=== PATIENT | female | born 1980 | race Caucasian/White ===

== ENCOUNTER 2020-06-12 14:55 | Outpatient (REF) | payer MEDICARE, SELFPAY ==
[2020-06-12 15:11] LABS: MANUAL DIFF FLAG NO
[2020-06-12 15:16] LABS: Basophils Percent Auto 0.4 % (0-2); Eosinophils Absolute Auto 0.1 X10*3/uL (0.0-0.4); Eosinophils Percent Auto 1.2 % (0-4); Hematocrit 37.2 % (37-47); Hemoglobin 12.2 g/dl (12.0-16.0); Imm Gran Abs Auto 0.01 X10*3/uL (0.00-0.03); Imm Gran Pct Auto 0.1 % (0.0-0.4); Lymphocytes Absolute Auto 1.9 X10*3/uL (1.2-4.9); Lymphocytes Percent Auto 26.3 % (20-40); Mean Corpuscular HGB Conc 32.8 g/dl (31.0-35.0); Mean Corpuscular Hemoglobin 30.4 pg (27.0-33.0); Mean Corpuscular Volume 92.8 fL (80-98); Mean Platelet Volume 9.7 fL (9.4-12.3); Monocytes Absolute Auto 0.6 X10*3/uL (0.1-1.2); Monocytes Percent Auto 8.7 % (2-11); Neutrophils Absolute Auto 4.6 X10*3/uL (2.0-8.3); Neutrophils Percent Auto 63.3 % (45-73); Platelet Count 306 X10*3/uL (160-400); Red Blood Count 4.01 X10*6/uL (4.20-5.50); Red Cell Distribution Width 12.6 % (11.0-16.0); White Blood Count 7.3 X10*3/uL (4.8-10.8)
[2020-06-12 15:38] LABS: Alanine Aminotransferase 12 U/L (0-31); Albumin Level 4.2 g/dL (3.5-5.0); Alkaline Phosphatase 68 U/L (39-117); Anion Gap 11 (12-20); Aspartate Amino Transferase 12 U/L (5-31); Bilirubin Total 0.2 mg/dL (0.0-1.0); Blood Urea Nitrogen 19 mg/dL (9-16); Calcium 8.9 mg/dL (8.4-10.2); Carbon Dioxide 27 mmol/L (22-29); Chloride 103 mmol/L (96-108); Cholesterol 175 mg/dL; Estimated Glomerular Filt Rate > 60; Glucose Fasting 98 mg/dL (60-99); HDL Cholesterol 57 mg/dL; LDL Cholesterol Calculated 105 mg/dl; Potassium 4.2 mmol/L (3.3-5.1); Sodium 137 mmol/L (135-145); Total Protein 7.1 g/dL (6.5-8.0); Triglycerides 65 mg/dL
[2020-06-12 15:59] LABS: TSH reflex Free T4 0.79 uIU/mL (0.32-4.0)
[2020-06-12 17:27] LABS: Folate 4.6 ng/mL (> or = 4.0); Vitamin B12 < 146 pg/mL (200-900)
== END 2020-06-12 14:56 | disposition home or self-care (01) ==
LOC: HO.LAB 14:55
PROVIDERS: PCP Family Medicine; Visit Provider Family Medicine
DX: Z00.00 Encounter for general adult medical examination without abnormal findings (principal); E53.8 Deficiency of other specified B group vitamins; Z98.84 Bariatric surgery status
CPT/HCPCS: 36415; 80053; 80061; 82607; 82746; 84443; 85025

== ENCOUNTER 2020-08-08 14:54 | Outpatient (REF) | payer OTHER, SELFPAY ==
--- NOTE | ~2020-08-08 | CT_ITS ---
EXAMINATION: CT CHEST WITH CONTRAST CLINICAL INFORMATION: Other nonspecific finding lung field COMPARISON: Previous chest CT October 2006 radius chest x-rays most recent October 2018 TECHNIQUE: Multidetector volumetric CT imaging of the chest was obtained after the administration of 65 mL of Omnipaque 350 intravenous contrast without immediate adverse reactions. Axial MIP volume rendering provided. Sagittal and coronal reformatted images were obtained. This CT examination was performed using dose optimization techniques as appropriate, variously including the following: *Automated exposure control *Adjustment of mA and/or kV according to patient size (this includes techniques or standardized protocols for targeted exams where dose is matched to indication/reason for exam; i.e. extremities or head) *Use of iterative reconstruction technique DLP: 159 mGy-cm FINDINGS: LUNGS: There is a 3 mm peripheral or subpleural right upper lobe nodule axial image 42 series 5 that is stable. There is a 3 mm peripheral or subpleural left lower lobe nodule adjacent to the fissure axial image 101 series 5. This may be seen on axial image 52 series 102 on prior exam. There is a 3 mm right middle lobe nodule axial 105 series 5. This may be seen on axial image 54 series 102 on prior exam. The lungs are otherwise clear. MEDIASTINUM: There is a 1 x 0.6 cm left thyroid nodule. This does not meet criteria for imaging/ultrasound follow-up by size criteria. There are small mediastinal and bilateral hilar lymph nodes. There are no enlarged hilar or mediastinal lymph nodes. The heart does not appear enlarged. There is a trace pericardial effusion. There is question of wall thickening of the distal thoracic esophagus. PLEURA: There is no pleural effusion. No pleural mass or thickening. AXILLA: There are small bilateral axillary lymph nodes. No enlarged lymph nodes are seen. No chest wall mass is seen. UPPER ABDOMEN: There is a new gastric lap band. OSSEOUS STRUCTURES: Unremarkable. CT/CT chest w con IMPRESSION: Small pulmonary nodules probably unchanged from previous exam October 2006. Small pericardial effusion similar to 2017 exam. New gastric lap band. Question wall thickening of the distal thoracic esophagus.
[2020-08-08] MEDS: iohexoL 350 MG/ML 100 ML INFUS..BTL IV (15:15)
== END 2020-08-08 14:55 | disposition home or self-care (01) ==
LOC: HO.CT 14:54
PROVIDERS: PCP Family Medicine; Visit Provider Family Medicine
DX: R91.8 Other nonspecific abnormal finding of lung field (principal)
CPT/HCPCS: 71260; Q9967

== ENCOUNTER → 2020-10-06 09:13 | Outpatient (BNVA) | payer OTHER, SELFPAY | PROVIDERS: PCP Family Medicine; Referring Provider Family Medicine; Visit Provider Nurse Practitioner Family | DX: R10.13 Epigastric pain (principal); R10.9 Unspecified abdominal pain; K21.9 Gastro-esophageal reflux disease without esophagitis | CPT/HCPCS: 99202 ==

== ENCOUNTER 2020-10-10 13:45 | Day surgery (SDC) | payer OTHER, SELFPAY ==
[2020-10-10 14:15] LABS: UPreg QC Valid YES; Urine Pregnancy NEGATIVE (NEGATIVE)
[2020-10-10 14:17] VITALS: BP 115/79; PULSE 83; RESP 20; TEMP 36.9; O2SAT 98; BMI 39.9
--- NOTE | 2020-10-10 14:20 | HO.ANESPROP2 ---
FORMERLY [facility], [facility] Active Problems Active Problems: All Active Problems (Updated 08/21/20 @ 12:10 by Soham Gotti MD) Esophageal thickening (Acute) Epigastric pain (Acute) Nicotine dependence (Acute) GERD (gastroesophageal reflux disease) (Acute) Screening for colon cancer (Acute) Breast cancer screening by mammogram (Acute) Screening for cervical cancer (Acute) Lung nodules (Acute) Low vitamin B12 level (Acute) Laboratory examination ordered as part of a routine general medical examination (Acute) Nicotine dependence (Acute) History of laparoscopic adjustable gastric banding (Acute) Hiatal hernia (Acute) Abdominal pain (Acute) Anxiety (Acute) Depression (Acute) Past Medical History Medical History Anxiety Depression Lung nodules Sleep apnea Vitamin B12 deficiency Family History Family History Mother Esophageal cancer Father Diabetes Heart attack Surgical History Surgical History History of bilateral breast reduction surgery History of placement of ear tubes Social History Social History Alcohol intake: never Patient Tobacco Use Status: Current everyday Tobacco user Cigarettes Per Day: 10 Are you DNR?: No Advance Directives: No Advance Directives Information Provided: Yes Meds Allergies Allergy/AdvReac Type Severity Reaction Status Date / Time sulfamethoxazole Allergy Severe hives, Verified 10/10/20 14:17 [From Bactrim] fever trimethoprim [From Bactrim] Allergy Severe hives, Verified 10/10/20 14:17 fever diisopromine AdvReac Intermediate hives Verified 10/10/20 14:17 Home Medications Medication Instructions Recorded Confirmed Last Taken Type clonazepam 0.5 mg tablet 0.5 mg PO TID PRN 06/12/20 Unknown History dextroamphetamine-amphetamine 20 1 tab PO DAILY 06/12/20 Unknown History mg tablet dextroamphetamine-amphetamine 30 1 tab PO DAILY 06/12/20 Unknown History mg tablet escitalopram oxalate 10 mg tablet 0 mg PO 06/12/20 Unknown History escitalopram oxalate 20 mg tablet 0 mg PO 06/12/20 Unknown History oxcarbazepine 150 mg tablet 0 mg PO 06/12/20 Unknown History Exam Exam Date and Time: October 10, 2020 1420 Pertinent Lab Results Pertinent Lab Results: Laboratory Tests 10/10/20 14:05 Urine Test NEGATIVE Airway Mallampati Class: III TM Dist: >3cm Neck ROM: Full
[2020-10-10] MEDS: Lactated Ringers 1,000 ML 100 ML IVCONT (14:31)
--- NOTE | 2020-10-10 15:04 | MHC.SHP ---
Pre-Procedural Eval Section A Date of Service: 10/10/20 The patient is an INPATIENT: No Changes since office visit: Yes Patient answered all questions; No Cold of Flu in the past 2 weeks, No New Medical Problems and No Changes in Medication The History & Physical has been completed within 30 days and I have reviewed it.: Yes Section B Chief Complaint: screening,reflux Allergies: Allergies Allergy/AdvReac Type Severity Reaction Status Date / Time sulfamethoxazole Allergy Severe hives, Verified 10/10/20 14:17 [From Bactrim] fever trimethoprim [From Bactrim] Allergy Severe hives, Verified 10/10/20 14:17 fever diisopromine AdvReac Intermediate hives Verified 10/10/20 14:17 Plan I have reviewed the history and physical and performed a pertinent physical examination on my patient. No changes have occurred unless specified.
[2020-10-10 16:10] VITALS: BP 95/54; PULSE 83; RESP 14; TEMP 36.3; O2SAT 99
[2020-10-10 16:25] VITALS: BP 109/77; PULSE 95; RESP 16; TEMP 36.3; O2SAT 99
--- NOTE | 2020-10-10 19:38 | W.PM.OPN ---
Operative Note Operative Note Date of Service: 10/10/20 Narrative: Pre-op diagnosis: Colon cancer screening, Severe heartburn and regurgitation, status post Lap Band surgery Post-op diagnosis: other (Erosive esophagitis, gastritis, diverticulosis, hemorrhoids) Procedure: FLEXIBLE TRANSORAL UPPER GASTROINTESTINAL ENDOSCOPY WITH BIOPSIES AND COLONOSCOPY TILL CECUM UPPER ENDOSCOPY Consent: Indications for the procedure and potential complications of bleeding, perforation, reaction to medications and missed diagnosis were discussed with the patient and informed consent was obtained. Instrument: Olympus GIF H 190 mid size upper endoscope Monitoring: Vital signs and clinical assessment, continuous EKG monitoring, Pulse oximetry, Carbon Dioxide monitoring and blood pressure monitoring were done throughout the procedure. Procedure: The patient was placed in the left lateral decubitis position and pre-procedure medications were administered and a bite block was placed. The endoscope was inserted into the mouth and advanced under direct vision to the third part of duodenum. A careful inspection was made as the upper endoscope was withdrawn including a retroflexed examination of the proximal stomach; Findings and interventions are described below. Findings: Larynx: Mild edema of arytenoid cartilages Esophagus: GE junction at 35 cms. Severe grade 3-4 erosive esophagitis from 30 to 35 cms. Two 1 cms benign appearing nodules at GEJ - biopsied. Stomach: Narrowing due to lap band at 40 cms - mid-size upper endoscope passed through the lap band with minimal resistance. Mild gastric erythema. Biopsies were obtained. Grade 2 flap valve on retroflexed examination of the cardia. Duodenum: Normal bulb and descending duodenum Intervention: Biopsies as noted above COLONOSCOPY PROCEDURE NOTE Consent: Indications for the procedure and potential complications of bleeding, perforation, reaction to medications and missed diagnosis were discussed with the patient and informed consent was obtained. Instrument: Olympus PCF H 190 L variable stiffness pediatric colonoscope Monitoring: Vital signs and clinical assessment, intermittent blood pressure monitoring, continuous EKG monitoring, Pulse oximetry and Carbon Dioxide monitoring were done throughout the procedure. Colon withdrawl time was 28 minutes. Procedure: The patient was placed in the left lateral decubitis position and pre-procedure medications were administered. After a digital rectal examination of the ano-rectum, the video colonoscope was inserted into the rectum and advanced through the colon to the cecum. The colonoscope was slowly withdrawn in a retrograde panoramic fashion and the colon mucosa was carefully examined including a retroflexed view of the rectum. Findings and interventions are described below. Procedure Difficulty: : Without difficulty Findings: Terminal Ileum: Not evaluated Cecum: Normal Ascending Colon: Normal Transverse Colon: Normal Descending Colon: Moderate diverticulosis Sigmoid Colon: Moderate diverticulosis Rectum: Normal Ano-rectum: Moderate internal hemorrhoids Colon preparation: Good after copious irrigation Impression and Post Procedure Diagnosis: Endoscopy Findings: LARYNX: Changes suggestive of LPRD ESOPHAGUS: Severe erosive esophagitis, two benign appearing nodules at GEJ STOMACH: Narrowing due to lap band at 40 cms likely causing severe GERD, Gastritis. Colonoscopy Findings: No polyps were detected. Moderate diverticulosis seen in the left colon Moderate hemorrhoids on retroflexed exam. Plan: Await pathology results Patient has an appointment on 11/10/20 in the GI Clinic with Randee Edmond FNP-BC. Consider Genetic testing due to FH of gastric and colon cancer in multiple family members. Patient will be scheduled for an UGI to rule out partial obstruction due to lap band causing severe reflux. She will need to FU with Bariatric surgery for adjustment/removal of Lap Band. Repeat EGD and Colonoscopy in 5 years due to positive family hx of colon cancer (Maternal GM in her 60's, two maternal uncles in their 40's) and stomach cancer (pt's Mom in her 60's). Above findings were reviewed with the patient and GERD and diverticulosis handouts were given in the discharge area. Patient was advised to resume taking Omeprazole. Surgeon: Kaylie Pineda MD Anesthesia: MAC (Dolly Garcia CRNA) Was an Welding Machine Operator Electroslag used for this Procedure?: Yes Welding Machine Operator Electroslag: Megan Ash Estimated blood loss (mL): 0 Pathology: other (A. GASTRIC ANTRUM BX'S R/O H. PYLORI B. ESOPHAGEAL NODULE) Condition: stable Disposition: PACU
== END 2020-10-10 16:43 | disposition home or self-care (01) ==
PROVIDERS: Internal Medicine; PCP Family Medicine; Visit Provider Internal Medicine Gastroenterology
PROC: (CPT 43239; principal; 2020-10-10 16:00)
DX: Z12.11 Encounter for screening for malignant neoplasm of colon (principal); K57.30 Diverticulosis of large intestine without perforation or abscess without bleeding; K64.8 Other hemorrhoids; K29.50 Unspecified chronic gastritis without bleeding; K21.9 Gastro-esophageal reflux disease without esophagitis; K20.80 Other esophagitis without bleeding; Z79.899 Other long term (current) drug therapy; Z98.84 Bariatric surgery status; F17.210 Nicotine dependence, cigarettes, uncomplicated; Z88.2 Allergy status to sulfonamides; Z88.8 Allergy status to other drugs, medicaments and biological substances
CPT/HCPCS: 43239; G0105; 81025; 88305; 88342

== ENCOUNTER → 2020-11-10 08:46 | Outpatient (BNVA) | payer OTHER, SELFPAY | PROVIDERS: Visit Provider Nurse Practitioner Family | DX: K21.9 Gastro-esophageal reflux disease without esophagitis (principal); K22.10 Ulcer of esophagus without bleeding; K22.8 Other specified diseases of esophagus; R10.9 Unspecified abdominal pain; Z98.84 Bariatric surgery status | CPT/HCPCS: Q3014 ==

== ENCOUNTER → 2020-11-18 11:11 | Outpatient (BNVA) | payer OTHER, SELFPAY | PROVIDERS: Visit Provider Nurse Practitioner Family | DX: Z13.79 Encounter for other screening for genetic and chromosomal anomalies (principal) | CPT/HCPCS: 99211 ==

== ENCOUNTER → 2020-12-23 08:53 | Outpatient (BNVA) | payer OTHER, SELFPAY | PROVIDERS: Visit Provider Nurse Practitioner Family | DX: K21.00 Gastro-esophageal reflux disease with esophagitis, without bleeding (principal); R10.13 Epigastric pain; R10.9 Unspecified abdominal pain | CPT/HCPCS: 99212 ==

== ENCOUNTER → 2020-12-29 10:39 | Outpatient (BNVA) | payer OTHER, SELFPAY | PROVIDERS: Visit Provider Surgery ==

== ENCOUNTER 2021-05-01 14:04 | Outpatient (REF) | payer OTHER, SELFPAY ==
[2021-05-01 14:26] LABS: MANUAL DIFF FLAG NO
[2021-05-01 15:22] LABS: Basophils Percent Auto 0.5 % (0-2); Eosinophils Absolute Auto 0.1 X10*3/uL (0.0-0.4); Eosinophils Percent Auto 1.3 % (0-4); Hematocrit 35.6 % (37.0-47.0); Hemoglobin 11.5 g/dl (12.0-16.0); Imm Gran Abs Auto 0.01 X10*3/uL (0.00-0.03); Imm Gran Pct Auto 0.2 % (0.0-0.4); Lymphocytes Absolute Auto 1.4 X10*3/uL (1.2-4.9); Mean Corpuscular HGB Conc 32.3 g/dl (31.0-35.0); Mean Corpuscular Hemoglobin 27.8 pg (27.0-33.0); Mean Corpuscular Volume 86.2 fL (80.0-98.0); Mean Platelet Volume 10.5 fL (9.4-12.3); Monocytes Absolute Auto 0.5 X10*3/uL (0.1-1.2); Monocytes Percent Auto 8.7 % (2-11); Neutrophils Absolute Auto 4.1 x10*3/uL (2.0-8.3); Neutrophils Percent Auto 66.3 % (45-73); Platelet Count 317 X10*3/uL (160-400); Red Blood Count 4.13 X10*6/uL (4.20-5.50); White Blood Count 6.2 X10*3/uL (4.8-10.8)
[2021-05-01 15:50] LABS: Alanine Aminotransferase 21 U/L (0-31); Albumin Level 4.3 g/dL (3.5-5.0); Alkaline Phosphatase 65 U/L (39-117); Anion Gap 15 (12-20); Aspartate Amino Transferase 22 U/L (5-31); Bilirubin Total 0.5 mg/dL (0.0-1.0); Blood Urea Nitrogen 10 mg/dL (9-16); Calcium 9.3 mg/dL (8.4-10.2); Carbon Dioxide 21 mmol/L (22-29); Chloride 108 mmol/L (96-108); Estimated Glomerular Filt Rate > 60; Glucose Fasting 97 mg/dL (60-99); Potassium 3.8 mmol/L (3.3-5.1); Sodium 140 mmol/L (135-145); Total Protein 7.5 g/dL (6.5-8.0)
[2021-05-01 16:11] LABS: TSH reflex Free T4 0.28 uIU/mL (0.32-4.0)
[2021-05-01 16:23] LABS: Vitamin B12 245 pg/mL (200-900)
[2021-05-01 16:56] LABS: Free T4 (Free Thyroxine) 0.98 ng/dL (0.71-1.85)
[2021-05-02 11:57] LABS: Follicle Stimulating Hormone 8.8 mIU/mL; Lutenizing Hormone 4.7 mIU/mL
== END 2021-05-01 14:05 | disposition home or self-care (01) ==
LOC: HO.LAB 14:04
PROVIDERS: PCP Family Medicine; Visit Provider Family Medicine
DX: Z00.00 Encounter for general adult medical examination without abnormal findings (principal); E53.8 Deficiency of other specified B group vitamins; R53.83 Other fatigue
CPT/HCPCS: 36415; 80048; 80053; 82607; 82746; 83001; 83002; 84439; 84443; 85025

== ENCOUNTER 2021-05-20 13:55 | Outpatient (REF) | payer OTHER, SELFPAY ==
[2021-05-20 15:23] LABS: Free T4 (Free Thyroxine) 1.02 ng/dL (0.71-1.85); Thyroid Stimulating Hormone 0.96 uIU/mL (0.32-4.0)
[2021-05-22 00:31] LABS: Triiodothyronine T3 Total 129 ng/dL (76-181)
== END 2021-05-20 13:56 | disposition home or self-care (01) ==
LOC: HO.LAB 13:55
PROVIDERS: PCP Family Medicine; Visit Provider Family Medicine
DX: E03.9 Hypothyroidism, unspecified (principal)
CPT/HCPCS: 36415; 84439; 84443; 84480

== ENCOUNTER 2022-12-27 14:36 | Emergency (ER) | payer OTHER, SELFPAY ==
--- NOTE | ~2022-12-27 | CT_ITS ---
EXAMINATION: CT ABDOMEN AND PELVIS WITHOUT CONTRAST CLINICAL INFORMATION: Lower abdominal pain. Nausea and vomiting. COMPARISON: None available. TECHNIQUE: Multidetector volumetric imaging was performed from the superior aspect of the liver through the pubic symphysis. Sagittal and coronal reformatted images were obtained on the technologist's workstation. This CT examination was performed using dose optimization techniques as appropriate, variously including the following: *Automated exposure control *Adjustment of mA and/or kV according to patient size (this includes techniques or standardized protocols for targeted exams where dose is matched to indication/reason for exam; i.e. extremities or head) *Use of iterative reconstruction technique DLP: 996 mGy-cm FINDINGS: LUNG BASES: The visualized lung bases are unremarkable. LIVER, GALLBLADDER, AND BILIARY TREE: The noncontrast liver is normal in size and contour. No biliary ductal dilatation is present. The gallbladder is surgically absent. PANCREAS: Normal contour. SPLEEN: Not enlarged. ADRENAL GLANDS: No adrenal masses. KIDNEYS AND URETERS: The kidneys are symmetric in size. No hydronephrosis or perinephric stranding. BLADDER: Unremarkable. GASTROINTESTINAL TRACT: Status post gastric lap banding. Small and large bowel loops are of normal caliber. No small bowel obstruction. ABDOMINAL WALL: No significant hernia is appreciated. LYMPH NODES: Numerous subcentimeter mesenteric lymph nodes are nonspecific. VASCULAR: Normal caliber abdominal aorta. PELVIC VISCERA: Unremarkable. OSSEOUS STRUCTURES: No destructive bone lesions. CT/CT abdomen pelvis wo IV con IMPRESSION: No acute abnormality in the abdomen or pelvis.
[2022-12-27 14:52] VITALS: BP 145/93; PULSE 106; RESP 18; TEMP 37.2; O2SAT 98; BMI 42.6
--- NOTE | 2022-12-27 14:52 | ED_ITS ---
HPI - Abdominal Pain General Chief Complaint: Abdominal Pain Stated Complaint: abd pain Time Seen by Provider: 12/27/22 18:38 Source: patient Mode of arrival: ambulatory Limitations: no limitations History of Present Illness HPI narrative: 42-year-old female presents with abdominal pain. The pain is sharp. It is intermittent. Symptoms can be severe. There is no clear relieving or exacerbating features. Can be associated with nausea vomiting. She has constipation which is relatively normal for her. She denies any diarrhea or blood in her stools. She had no fevers or chills. There is no clear relieving or exacerbating features. She does have a history of endoscopy which she was told she has diverticular disease. She was wondering if this could be diverticulitis. Additionally, the pain does migrate. It tends to be mostly in the left lower quadrant area. She denies any urinary complaints. Related Data Home Medications Medication Instructions Recorded Confirmed clonazepam 0.5 mg tablet 0.5 mg PO TID PRN 06/12/20 dextroamphetamine-amphetamine 20 1 tab PO DAILY 06/12/20 mg tablet dextroamphetamine-amphetamine 30 1 tab PO DAILY 06/12/20 mg tablet escitalopram oxalate 10 mg tablet 0 mg PO 06/12/20 escitalopram oxalate 20 mg tablet 0 mg PO 06/12/20 oxcarbazepine 150 mg tablet 0 mg PO 06/12/20 Previous Rx's Medication Instructions Recorded sucralfate 1 gram tablet 1 g PO BID 30 days #60 tabs 12/15/20 omeprazole 40 mg capsule,delayed 40 mg PO BID 30 days #60 caps 03/03/21 release pregabalin 50 mg capsule (Lyrica) 50 mg PO BEDTIME 30 days #30 caps 03/25/21 cyanocobalamin (vitamin B-12) 1,000 mcg IM Q4W #3 mL 05/18/21 1,000 mcg/mL injection solution albuterol sulfate 90 mcg/actuation 2 puff inhalation Q4-6H PRN 05/20/21 aerosol inhaler (ProAir HFA) shortness of breath or wheezing 30 days #8.5 grams nicotine (polacrilex) 2 mg gum 2 mg buccal Q2H 28 days #20 ea 05/20/21 (Nicorette) bupropion HCl 150 mg 24 hr tablet, 150 mg PO QAM 90 days #90 tabs 06/19/21 extended release sumatriptan succinate 25 mg tablet See Rx Instructions PO .COMPLEX 30 07/20/21 days #12 tabs fluticasone propionate 50 1 spray intranasal Q12H 30 days 08/13/21 mcg/actuation nasal #16 grams spray,suspension (Flonase Allergy Relief) dicyclomine 10 mg capsule 10 mg PO QID #20 caps 12/27/22 metoclopramide HCl 10 mg tablet 10 mg PO Q6H PRN nausea and 12/27/22 vomiting, abdominal discomfort #10 tabs polyethylene glycol 3350 17 gram 17 g PO DAILY #30 ea 12/27/22 oral powder packet (Miralax) Allergies Allergy/AdvReac Type Severity Reaction Status Date / Time sulfamethoxazole Allergy Severe hives, Verified 07/20/21 14:48 [From Bactrim] fever diisopromine AdvReac Intermediate hives Verified 07/20/21 14:48 Review of Systems Review of Systems CONSTITUTIONAL: Denies weight loss, fever and chills. HEENT: Denies changes in vision and hearing. RESPIRATORY: Denies SOB and cough. CV: Denies palpitations no CP. GI: + abdominal pain, nausea, -vomiting and diarrhea. : Denies dysuria and urinary frequency. MSK: Denies myalgia and joint pain. SKIN: Denies rash and pruritus. NEUROLOGICAL: Denies headache and syncope. PSYCHIATRIC: Denies recent changes in mood. Denies anxiety and depression. All other ROS are negative unless in HPI PMFSH Past Medical History Medical History (Updated 12/27/22 @ 18:41 by Dannie Saleh MD) Lung nodules Sleep apnea Vitamin B12 deficiency Anxiety Depression Surgical History Hx of colonoscopy History of esophagogastroduodenoscopy (EGD) History of bilateral breast reduction surgery History of placement of ear tubes Family History Family History (Updated 03/25/21 @ 16:40 by ANA LAURA Prince) Mother Esophageal cancer Father Diabetes Heart attack Other Mental health disorder Social History Social History Housing: Apartment Alcohol intake: never Patient Tobacco Use Status: Current everyday Tobacco user Tobacco use type: Cigarette Cigarettes Per Day: 5 e-Cigarette/Vaping Use: Never Used Second Hand Smoke Exposure: Yes service: No Current occupational status: unemployed and disabled Current occupational exposures/hazards: No Cognitive needs: No Hearing needs: No Vision needs: No Physical Exam ED Vital Signs: Vital Signs - 24 hr 12/27/22 14:52 Temperature 99.0 F Pulse Rate 106 H Respiratory Rate 18 Blood Pressure 145/93 H Pulse Oximetry 98 Oxygen Delivery Method Room Air BMI result Body Mass Index 42.6 GEN: Well developed, no acute distress, alert, oriented HEENT: Normocephalic, atraumatic, normal external ears, nose appears normal, no oropharyngeal edema or exudates Eyes: Normal to appearance Neck: Supple, no lymphadenopathy Respiratory: Talks in complete sentences, no respiratory distress, clear to auscultation bilaterally Cardiovascular: Regular rate and rhythm, no murmurs rubs or gallops Abdomen: Soft, nontender, nondistended, no guarding, no rebound Back: No CVA tenderness Extremities: No clubbing cyanosis or edema Neurologic: No focal neurologic deficits, cranial nerves 2-12 intact, strength is 5/5 bilaterally Skin: No rash Course Course Course Narrative: RME - 42 yo female with history of GERD, anxiety, fibromyalgia, mirgraines, hx lap band surgery 2006 who presents to the ER for evaluation of diffuse abdominal pain and distention for the last 1 week. Pain is intermittent but has been a dull, constant pain today and is in the lower abd, worse with standing. +diarrhea last night after having ice cream, known lactose intolerance. +vomiting 2 days ago due to heart burn. Exam w/ tenderness throughout entire lower abdomen. Plan: labs and CT scan for further evaluation Reevaluation(s) Reevaluation #1: The workup is complete. There is no definite etiology of her symptoms. Suspect IBS or constipation. Will refer her back to her estate and trust tax principal. Will make some recommendations about promotility agents as well as probiotics. Medical Decision Making Medical Decision Making MDM Narrative: Patient presents with abdominal pain. Symptoms are moderate to severe. They are intermittent. Her examination is benign. Differential diagnosis includes IBS, IBD, colitis, diverticulitis, mesenteric adenitis, doubt AAA or dissection given no red flag symptoms. CT scan has already been ordered on her behalf. Will evaluate lab results did help determine etiology of her symptoms. Differential Diagnosis See above Admission/Observation Consideration of admission/observation: Escalation of care including admission/observation considered Lab Data MDM Lab Attestation statement: I reviewed the patient's lab results. 12/27/22 15:08 12/27/22 15:08 Labs: Lab Results 12/27/22 Range/Units 15:08 WBC 8.5 (4.8-10.8) X10*3/uL RBC 4.08 L (4.20-5.50) X10*6/uL Hgb 12.3 (12.0-16.0) g/dl Hct 37.6 (37.0-47.0) % MCV 92.2 (80.0-98.0) fL MCH 30.1 (27.0-33.0) pg MCHC 32.7 (31.0-35.0) g/dl RDW 12.8 (11.0-16.0) % Plt Count 339 (160-400) X10*3/uL MPV 10.2 (9.4-12.3) fL Immature Gran % (Auto) 0.5 H (0.0-0.4) % Neut % (Auto) 64.4 (45-73) % Lymph % (Auto) 26.0 (20-40) % [place] % (Auto) 7.2 (2-11) % Eos % (Auto) 1.2 (0-4) % Baso % (Auto) 0.7 (0-2) % Lymph # (Auto) 2.2 (1.2-4.9) X10*3/uL [place] # (Auto) 0.6 (0.1-1.2) X10*3/uL Eos # (Auto) 0.1 (0.0-0.4) X10*3/uL Baso # (Auto) 0.1 (0.0-0.2) X10*3/uL Abs Immat Gran (auto) 0.04 H (0.00-0.03) X10*3/uL Absolute Neuts (auto) 5.5 (2.0-8.3) x10*3/uL Absolute Nucleated RBC 0.000 (0.0-0.012) X10*3/uL Nucleated RBC % (auto) 0.0 (0.0-0.2) /100WBC Sodium 140 (135-145) mmol/L Potassium 3.9 (3.3-5.1) mmol/L Chloride 108 (96-108) mmol/L Carbon Dioxide 25 (22-29) mmol/L Anion Gap 11 L (12-20) BUN 15 (9-16) mg/dL Creatinine 0.77 (0.5-1.4) mg/dL Estim Creat Clear Calc 115.8 Estimated GFR > 60 Random Glucose 101 (60-115) mg/dL Calcium 9.8 (8.4-10.2) mg/dL Magnesium 1.9 (1.6-2.6) mg/dL Total Bilirubin 0.3 (0.0-1.0) mg/dL Direct Bilirubin 0.1 (0.0-0.5) mg/dL AST 19 (5-31) U/L ALT 15 (0-31) U/L Alkaline Phosphatase 70 (39-117) U/L Total Protein 7.6 (6.5-8.0) g/dL Albumin 4.2 (3.5-5.0) g/dL Lipase 18 (8-78) U/L Beta HCG, Quant < 2 mIU/mL Independent Interpretation I performed an independent interpretation of an: CT Scan (abd: NAD) Radiology Impression Discussion of test interpretation with radiology: I have reviewed the radiologist's reading. Radiologist Impression: CT/CT abdomen pelvis wo IV con IMPRESSION: No acute abnormality in the abdomen or pelvis. Dictated By: Alexey Jackson MD Signed By: <Electronically signed by Alexey Jackson MD in OV> 12/27/22 1650 Prescription Management I considered prescription management with: Pain Medication Discharge Plan Discharge Clinical Impression: Abdominal pain Patient Disposition: Home, Self-Care Instructions: Irritable Bowel Syndrome (ED), Abdominal Pain (ED), Bacterial Overgrowth Syndrome (DC) Additional Instructions: also add a probiotic daily Prescriptions: New dicyclomine 10 mg capsule 10 mg PO QID Qty: 20 0RF metoclopramide HCl 10 mg tablet 10 mg PO Q6H PRN (Reason: nausea and vomiting, abdominal discomfort) Qty: 10 0RF polyethylene glycol 3350 [Miralax] 17 gram powder in packet 17 g PO DAILY Qty: 30 0RF No Action sucralfate 1 gram tablet 1 g PO BID 30 Days Qty: 60 0RF Rx Instructions: take one tablet at noon and one at bedtime omeprazole 40 mg capsule,delayed release(DR/EC) 40 mg PO BID 30 Days Qty: 60 1RF cyanocobalamin (vitamin B-12) 1,000 mcg/mL solution 1,000 mcg IM Q4W Qty: 3 5RF fluticasone propionate [Flonase Allergy Relief] 50 mcg/actuation spray,suspension 1 spray intranasal Q12H 30 Days Qty: 16 0RF Rx Instructions: administer into each nostril dextroamphetamine-amphetamine 20 mg tablet 1 tab PO DAILY dextroamphetamine-amphetamine 30 mg tablet 1 tab PO DAILY clonazepam 0.5 mg tablet 0.5 mg PO TID PRN escitalopram oxalate 20 mg tablet 0 mg PO escitalopram oxalate 10 mg tablet 0 mg PO oxcarbazepine 150 mg tablet 0 mg PO bupropion HCl 150 mg tablet extended release 24 hr 150 mg PO QAM 90 Days Qty: 90 3RF sumatriptan succinate 25 mg tablet See Rx Instructions PO .COMPLEX 30 Days Qty: 12 1RF Rx Instructions: take 1 tab at onset of headache; if no relief may repeat 1 tab after at least 2 hrs; max = 4 tabs/24 hr PO pregabalin [Lyrica] 50 mg capsule 50 mg PO BEDTIME 30 Days Qty: 30 1RF albuterol sulfate [ProAir HFA] 90 mcg/actuation HFA aerosol inhaler 2 puff inhalation Q4-6H PRN (Reason: shortness of breath or wheezing) 30 Days Qty: 8.5 2RF nicotine (polacrilex) [Nicorette] 2 mg gum 2 mg buccal Q2H 28 Days Qty: 20 1RF Referrals: Kaylie Pineda MD [Physician] - 10 days
[2022-12-27 15:12] LABS: MANUAL DIFF FLAG NO
[2022-12-27 15:16] LABS: Basophils Absolute Auto 0.1 X10*3/uL (0.0-0.2); Basophils Percent Auto 0.7 % (0-2); Eosinophils Absolute Auto 0.1 X10*3/uL (0.0-0.4); Eosinophils Percent Auto 1.2 % (0-4); Hematocrit 37.6 % (37.0-47.0); Hemoglobin 12.3 g/dl (12.0-16.0); Imm Gran Abs Auto 0.04 X10*3/uL (0.00-0.03); Imm Gran Pct Auto 0.5 % (0.0-0.4); Lymphocytes Absolute Auto 2.2 X10*3/uL (1.2-4.9); Mean Corpuscular HGB Conc 32.7 g/dl (31.0-35.0); Mean Corpuscular Hemoglobin 30.1 pg (27.0-33.0); Mean Corpuscular Volume 92.2 fL (80.0-98.0); Mean Platelet Volume 10.2 fL (9.4-12.3); Monocytes Absolute Auto 0.6 X10*3/uL (0.1-1.2); Monocytes Percent Auto 7.2 % (2-11); Neutrophils Absolute Auto 5.5 x10*3/uL (2.0-8.3); Neutrophils Percent Auto 64.4 % (45-73); Platelet Count 339 X10*3/uL (160-400); Red Blood Count 4.08 X10*6/uL (4.20-5.50); Red Cell Distribution Width 12.8 % (11.0-16.0); White Blood Count 8.5 X10*3/uL (4.8-10.8)
[2022-12-27 15:34] LABS: Alanine Aminotransferase 15 U/L (0-31); Albumin Level 4.2 g/dL (3.5-5.0); Alkaline Phosphatase 70 U/L (39-117); Anion Gap 11 (12-20); Aspartate Amino Transferase 19 U/L (5-31); Bilirubin Direct 0.1 mg/dL (0.0-0.5); Bilirubin Total 0.3 mg/dL (0.0-1.0); Blood Urea Nitrogen 15 mg/dL (9-16); Calcium 9.8 mg/dL (8.4-10.2); Carbon Dioxide 25 mmol/L (22-29); Chloride 108 mmol/L (96-108); Creatinine Clr Calc Pharmacy 115.8; Estimated Glomerular Filt Rate > 60; Glucose Random 101 mg/dL (60-115); HCG Quantitative < 2 mIU/mL; Lipase 18 U/L (8-78); Magnesium 1.9 mg/dL (1.6-2.6); Potassium 3.9 mmol/L (3.3-5.1); Sodium 140 mmol/L (135-145); Total Protein 7.6 g/dL (6.5-8.0)
[2022-12-27 19:01] VITALS: BP 122/79; PULSE 86; RESP 17; TEMP 36.9; O2SAT 98
== END 2022-12-27 19:17 | disposition home or self-care (01) ==
LOC: HO.ED 19:07
PROVIDERS: Physician Assistant; Emergency Provider Emergency Medicine
DX: R10.32 Left lower quadrant pain (principal); R11.2 Nausea with vomiting, unspecified; Z79.899 Other long term (current) drug therapy; F17.210 Nicotine dependence, cigarettes, uncomplicated; Z71.6 Tobacco abuse counseling
CPT/HCPCS: 36415; 74176; 80048; 80076; 83690; 83735; 84702; 85025; 99282; 99284

== ENCOUNTER 2022-12-29 14:02 | Outpatient (AMB) | payer OTHER, SELFPAY ==
[2022-12-29 14:11] VITALS: BP 126/90; PULSE 74; O2SAT 98; BMI 42.6
--- NOTE | 2022-12-29 14:11 | A.OFFPC_ITS ---
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: No Allergies sulfamethoxazole [From Bactrim] Allergy (Severe, Verified 12/29/22 14:32) hives, fever diisopromine Adverse Reaction (Intermediate, Verified 12/29/22 14:32) hives Medication List - Last Reconciled 12/29/22 by EMELINA Bernstein albuterol sulfate 90 mcg/actuation (ProAir HFA) 2 puffs inhalation Q4-6H PRN 30 days bupropion HCl 300 mg PO QAM clonazepam 0.5 mg PO TID PRN cyanocobalamin (vitamin B-12) 1,000 mcg IM Q4W dextroamphetamine-amphetamine 20 mg 1 tab PO DAILY dextroamphetamine-amphetamine 30 mg 1 tab PO DAILY dicyclomine 10 mg PO QID fluticasone propionate 50 mcg/actuation (Flonase Allergy Relief) 1 spray intranasal Q12H 30 days metoclopramide HCl 10 mg PO Q6H PRN omeprazole 40 mg PO BID 30 days polyethylene glycol 3350 (Miralax) 17 grams PO DAILY Tobacco use date assessed: 12/29/22 Dental Screening Dental Screen Date: 12/29/22 Did you have a dental visit in the last 12 months?: No Did you have a dental problem in the last 6 months where you did not have access to dental care?: No HPI HPI Comments History of Present Illness Details 42-year-old female new patient presents today for transfer of care from Dr. Riggs past medical history significant for asthma, anxiety, depression, vitamin B12 deficiency, GERD, fibromyalgia and migraines. Patient reports that she was previously on vitamin B12 injections monthly however states she has not had in months. Vitamin B12 level ordered in addition to routine blood work. Patient reports past medical history of GABBY however she was not able to tolerate CPAP machine. Patient currently following with a psychiatrist weekly therapist through [facility] for history of anxiety and depression. Patient referred to OBGYN and mammogram ordered. Patient requesting referral to ENT for history of chronic sinus problems and fullness in bilateral ears ongoing for years patient reports as a child she had has had a history of her adenoids removed as well as ear tubes. Referral entered. [facility] Medical History (Updated 12/30/22 @ 10:04 by EMELINA Bernstein) Hiatal hernia Abdominal pain Lung nodules Sleep apnea Vitamin B12 deficiency Anxiety Depression Surgical History (Updated 12/30/22 @ 10:04 by EMELINA Bernstein) History of laparoscopic adjustable gastric banding Hx of colonoscopy History of esophagogastroduodenoscopy (EGD) History of bilateral breast reduction surgery History of placement of ear tubes Family History Mother Esophageal cancer Father Diabetes Heart attack Other Mental health disorder Social History Housing: Apartment Alcohol intake: never Patient Tobacco Use Status: Current everyday Tobacco user Tobacco use type: Cigarette Cigarettes Per Day: 5 e-Cigarette/Vaping Use: Never Used Second Hand Smoke Exposure: Yes service: No Current occupational status: unemployed and disabled Current occupational exposures/hazards: No Cognitive needs: No Hearing needs: No Vision needs: No Questionnaire PHQ-9 Over the last 2 weeks, how often have you been bothered by any of the following problems? 1. Little interest or pleasure in doing things: more than half the days 2. Feeling down, depressed, or hopeless: more than half the days 3. Trouble falling or staying asleep, or sleeping too much: not at all 4. Feeling tired or having little energy: not at all 5. Poor appetite or overeating: not at all 6. Feeling bad about yourself - or that you are a failure or have let yourself or your family down: not at all 7. Trouble concentrating on things, such as reading the newspaper or watching television: not at all 8. Moving or speaking so slowly that other people could have noticed. Or the opposite - being so fidgety or restless that you have been moving around a lot more than usual: not at all 9. Thoughts that you would be better off or of hurting yourself in some way: not at all Total score: 4 Depression Screening Interpretation: Negative 18429 - PHQ-9 Billing: Yes Source: Developed by Drs. Samanta Torres Kurt Kroenke and colleagues, with an educational shant from [employer]. Thrive Questionnaire Date Thrive assessed: 08/21/20 AUDIT C Alcohol Use Questionnaire (AUDIT-C) 1. How often do you have a drink containing alcohol?: Never 3. How often do you have six or more drinks on one occasion?: Never Total Score: 0 ARA-7 AMB Questionnaire ARA-7 Date ARA - 7 assessed: 12/29/22 Feeling nervous, anxious, or on edge: 2 = More than half the days Not being able to stop or control worryin = More than half the days Worrying too much about different things: 2 = More than half the days Trouble relaxin = Not at all Being so restless that it is hard to sit still: 0 = Not at all Becoming easily annoyed or irritable: 0 = Not at all Feeling afraid as if something awful might happen: 0 = Not at all Total ARA-7 score (0-4 normal; 5-9 mild; 10-14 moderate; 15-21 severe): 6 Source: Developed by Drs. Estuardo Oneal, Samanta Lomas, Osvaldo Rush and colleagues, with an educational shant from [employer]. ARA-7 Assessment Billing ARA-7 Assessment Tool: ARA-7 Assessment 72790 Review of Systems Const Denies chills, Denies fatigue, Denies fever(s) and Denies poor appetite Eyes Denies no additional complaints ENT Reports Normal hearing present Card Denies chest pain, Denies syncope, Denies rapid heart rate and Denies dyspnea Resp Denies cough and Denies dyspnea GI Denies change in stool character, Denies constipation, Denies diarrhea, Denies nausea and Denies vomiting Denies urinary frequency, Denies dysuria and Denies urinary urgency Neuro Reports Normal hearing present, Denies confusion and Denies syncope Psych Denies confusion Endo Denies fatigue Physical exam (Primary Care) Vital Signs: Last Vital Signs Pulse 74 12/29/22 14:11 BP 126/90 H 12/29/22 14:11 Pulse Ox 98 12/29/22 14:11 Oxygen Delivery Method Room Air 12/29/22 14:11 BMI result Body Mass Index 42.6 Tobacco/Smoking Status: Tobacco use Status Tobacco use date assessed 12/29/22 12/29/22 14:21 Patient Tobacco Use Status Current everyday Tobacco 12/29/22 14:14 Tobacco use type Cigarette 12/29/22 14:14 e-Cigarette/Vaping Use Never Used 12/29/22 14:14 PHQ-9: PHQ-9 Score PHQ-9: Total score 4 12/29/22 14:33 Depression Screening Interpretation: Negative Thrive Assessment: Date of Thrive Assessment Date Thrive assessed 08/21/20 12/29/22 14:14 Const General: No confusion Orientation/consciousness: No confusion HENMT Head: Yes normocephalic and Yes atraumatic Eyes Conjunctivae: conjunctivae normal Chest Chest palpation & inspection: normal inspection of the chest Resp Effort & Inspection: normal respiratory effort Auscultation: clear to auscultation bilaterally, no crackles, no rhonchi and no wheezes Cardio Rate: regular rate Rhythm: regular rhythm Heart sounds: S1 normal heart sound present and S2 normal heart sound present GI Inspection: Yes normal to inspection Neuro General: No confusion Cranial nerves: Yes Normal hearing present Extrem General: No edema Assessment and Plan Assessment & Plan (1) Sensation of fullness in both ears: Code(s): H93.8X3 - Other specified disorders of ear, bilateral Plan: Referral placed to ENT. (2) Anxiety: Code(s): F41.9 - Anxiety disorder, unspecified Plan: Continue to follow with psychiatrist and therapist. (3) Sleep apnea: Code(s): G47.30 - Sleep apnea, unspecified Plan: Patient unable to tolerate CPAP. (4) Low vitamin B12 level: Code(s): E53.8 - Deficiency of other specified B group vitamins Plan: Vitamin-B12 (5) Depression: Code(s): F32.9 - Major depressive disorder, single episode, unspecified Plan: Continue to follow with psychiatry and therapist continue on current medications. (6) Screening for cervical cancer: Code(s): Z12.4 - Encounter for screening for malignant neoplasm of cervix Plan: Referral placed for OBGYN. (7) Breast cancer screening by mammogram: Code(s): Z12.31 - Encounter for screening mammogram for malignant neoplasm of breast Plan: Mammogram ordered. Plan Follow-up in 3 months for physical exam. Orders: Orders Vitamin B12 12/29/22 Z13.21 - Encounter for screening for nutritional disorder Vitamin B12 and Folate 12/29/22 Z13.21 - Encounter for screening for nutritional disorder Vitamin D 25-OH Total 12/29/22 Z13.21 - Encounter for screening for nutritional disorder Lipid Panel 12/29/22 Z13.220 - Encounter for screening for lipoid disorders TSH reflex Free T4 12/29/22 Z13.29 - Encounter for screening for other suspected endocrine disorder MM screening mammo BI 12/29/22 Z12.31 - Encounter for screening mammogram for malignant neoplasm of breast Referrals SAF[employer]Y LEADER Referral Z12.4 - Encounter for screening for malignant neoplasm of cervix Ear/Nose/Throat Referral H93.8X3 - Other specified disorders of ear, bilateral Coding Level of Care Code Est Pt Level 4 (06066) Diagnoses Sensation of fullness in both ears H93.8X3 Anxiety F41.9 Sleep apnea G47.30 Low vitamin B12 level E53.8 Depression F32.9 Screening for cervical cancer Z12.4 Breast cancer screening by mammogram Z12.31 Additional Codes ARA-7 Assessment Billing - ARA-7 Assessment Tool: ARA-7 Assessment 49090 ([id number])
== END 2022-12-29 14:50 | disposition home or self-care (01) ==
PROVIDERS: PCP Family Medicine; Visit Provider Nurse Practitioner Family
DX: F41.9 Anxiety disorder, unspecified (principal); F32.9 Major depressive disorder, single episode, unspecified; H93.8X3 Other specified disorders of ear, bilateral; G47.30 Sleep apnea, unspecified; E53.8 Deficiency of other specified B group vitamins
CPT/HCPCS: 99214

== ENCOUNTER 2023-01-25 09:33 | Outpatient (REF) | payer OTHER, SELFPAY ==
[2023-01-25 12:16] LABS: Cholesterol 170 mg/dL (<200); HDL Cholesterol 53 mg/dL (>40); LDL Cholesterol Calculated 100 mg/dL (<100); Triglycerides 89 mg/dL (<150)
[2023-01-25 12:35] LABS: Folate 8.7 ng/mL (> or = 4.0); Vitamin B12 289 pg/mL (200-900)
[2023-01-25 12:38] LABS: TSH reflex Free T4 0.86 uIU/mL (0.32-4.0); Vitamin D 25-OH Total 21.4 ng/mL (>30)
== END 2023-01-25 09:34 | disposition home or self-care (01) ==
LOC: HO.LAB 09:33
PROVIDERS: PCP Nurse Practitioner Family; Visit Provider Nurse Practitioner Family
DX: Z13.220 Encounter for screening for lipoid disorders (principal); Z13.21 Encounter for screening for nutritional disorder; Z13.29 Encounter for screening for other suspected endocrine disorder; E55.9 Vitamin D deficiency, unspecified; F41.9 Anxiety disorder, unspecified
CPT/HCPCS: 36415; 80061; 82306; 82607; 82746; 84443

== ENCOUNTER 2023-02-21 23:21 | Emergency (ER) | payer OTHER, SELFPAY ==
--- NOTE | ~2023-02-21 | CT_ITS ---
EXAMINATION: CT HEAD WITHOUT CONTRAST CLINICAL INFORMATION: Trauma. COMPARISON: None available. TECHNIQUE: Contiguous axial imaging was performed from the skull base to vertex without intravenous administration of contrast. This CT examination was performed using dose optimization techniques as appropriate, variously including the following: *Automated exposure control *Adjustment of mA and/or kV according to patient size (this includes techniques or standardized protocols for targeted exams where dose is matched to indication/reason for exam; i.e. extremities or head) *Use of iterative reconstruction technique DLP: 665 mGy-cm FINDINGS: The lateral, third and the fourth ventricles are normally outlined. The cortical sulci and basal cisterns are normally outlined as well. There is no acute territorial defect, hemorrhage or midline shift. The extra-axial spaces are unremarkable. Calvarium: Intact. Maxillofacial sinuses and mastoids: Clear as visualized. CT/CT head/brain wo IV con IMPRESSION: No acute intracranial abnormality.
[2023-02-21 23:25] VITALS: BP 149/87; PULSE 89; RESP 16; TEMP 37.1; O2SAT 98; BMI 41.2
[2023-02-22] MEDS: Acetaminophen 325 MG TABLET 975 MG PO (02:03)
--- NOTE | 2023-02-22 02:30 | PC.NURSE ---
PT A&OX3, RESPIRATIONS EVEN AND UNLABORED. PT REPORTS SHE WAS SITTING IN A CHAIR WHEN THE DOOR SWUNG OPEN AND HIT HER IN THE HEAD.PT HAS SMALL LACERATION TO HER HEAD, BLEEDING CONTROLLED. JEAN CLAUDE IN TACT AT THIS TIME. PT RESTING IN STRETCHER COMFORTABLY.
--- NOTE | 2023-02-22 04:33 | ED.WOUNDLAC ---
HPI - Wound/Laceration General Chief Complaint: Wound/Laceration Stated Complaint: Head Lac Time Seen by Provider: 02/22/23 04:33 Related Data Home Medications Medication Instructions Recorded Confirmed clonazepam 0.5 mg tablet 0.5 mg PO TID PRN 06/12/20 12/29/22 dextroamphetamine-amphetamine 20 1 tab PO DAILY 06/12/20 12/29/22 mg tablet dextroamphetamine-amphetamine 30 1 tab PO DAILY 06/12/20 12/29/22 mg tablet bupropion HCl 200 mg tablet,12 hr 300 mg PO QAM 12/29/22 12/29/22 sustained-release Previous Rx's Medication Instructions Recorded omeprazole 40 mg capsule,delayed 40 mg PO BID 30 days #60 caps 03/03/21 release cyanocobalamin (vitamin B-12) 1,000 mcg IM Q4W #3 mL 05/18/21 1,000 mcg/mL injection solution albuterol sulfate 90 mcg/actuation 2 puff inhalation Q4-6H PRN 05/20/21 aerosol inhaler (ProAir HFA) shortness of breath or wheezing 30 days #8.5 grams fluticasone propionate 50 1 spray intranasal Q12H 30 days 08/13/21 mcg/actuation nasal #16 grams spray,suspension (Flonase Allergy Relief) dicyclomine 10 mg capsule 10 mg PO QID #20 caps 12/27/22 metoclopramide HCl 10 mg tablet 10 mg PO Q6H PRN nausea and 12/27/22 vomiting, abdominal discomfort #10 tabs polyethylene glycol 3350 17 gram 17 g PO DAILY #30 ea 12/27/22 oral powder packet (Miralax) oxycodone 5 mg tablet 5 mg PO Q6H PRN pain #10 tabs 02/22/23 Allergies Allergy/AdvReac Type Severity Reaction Status Date / Time sulfamethoxazole Allergy Severe hives, Verified 12/29/22 14:32 [From Bactrim] fever diisopromine AdvReac Intermediate hives Verified 12/29/22 14:32 PMFSH Past Medical History Medical History (Updated 02/22/23 @ 05:07 by Dedrick Trinidad MD) Hiatal hernia Abdominal pain Lung nodules Sleep apnea Vitamin B12 deficiency Anxiety Depression Surgical History (Updated 12/30/22 @ 10:04 by EMELINA Bernstein) History of laparoscopic adjustable gastric banding Hx of colonoscopy History of esophagogastroduodenoscopy (EGD) History of bilateral breast reduction surgery History of placement of ear tubes Family History Family History Mother Esophageal cancer Father Diabetes Heart attack Other Mental health disorder Social History Social History Housing: Apartment Alcohol intake: never Patient Tobacco Use Status: Current everyday Tobacco user Tobacco use type: Cigarette Cigarettes Per Day: 5 e-Cigarette/Vaping Use: Never Used Second Hand Smoke Exposure: Yes Advance Directives: No Advance Directives Information Provided: Yes service: No Current occupational status: unemployed and disabled Current occupational exposures/hazards: No Cognitive needs: No Hearing needs: No Vision needs: No Physical Exam Vital Signs: Vital Signs: Last Vital Signs Temp 98.7 F 02/21/23 23:25 Pulse 89 02/21/23 23:25 Resp 16 02/21/23 23:25 BP 149/87 H 02/21/23 23:25 Pulse Ox 98 02/21/23 23:25 O2 Del Method Room Air 02/21/23 23:25 BMI result Body Mass Index 41.2 Medications Administered Discontinued Medications Generic Name Dose Route Start Last Admin Trade Name Thang PRN Reason Stop Dose Admin Acetaminophen 975 mg 02/22/23 01:59 02/22/23 02:03 Acetaminophen 325 Mg Tablet PO 02/22/23 02:00 975 mg ONCE ONE Administration Medical Decision Making Radiology Impression Discussion of test interpretation with radiology: I have reviewed the radiologist's reading. Radiologist Impression: CT head/brain wo IV con IMPRESSION: No acute intracranial abnormality. Dictated By: Estuardo Chi Discharge Plan Discharge Clinical Impression: Laceration of scalp Patient Disposition: Home, Self-Care Instructions: Laceration (ED), Concussion (ED) Additional Instructions: Your scalp laceration was closed with 5 nya Apply bacitracin twice a day until the nya are removed. The nya need to be removed in 7-10 days by either your doctor, in urgent care clinic or the emergency department. Watch for signs of infection which include redness, swelling, drainage of pus, increased pain. Your CT scan of your head was normal, there was no skull fracture or bleeding in the brain Based on your symptoms, you had a concussion, please follow the concussion instructions Take ibuprofen 200 mg pills, 3 pills every 6 hours as needed for pain. Take Tylenol (acetaminophen) 500 mg pills, 2 pills every 6 hours as needed for pain. For pain not relieved by ibuprofen or Tylenol take oxycodone 5 mg pills, 1 pill every 6 hours as needed for pain. Do not drive or work while taking this medication since they can cause sleepiness. Oxycodone is a narcotic medication that can be addicting. If you are concerned about addiction you can ask the pharmacist for less pills or do not get this prescription filled. Follow-up with your doctor in 2 days. Please return to the emergency department if your symptoms get worse or if you develop any symptoms that are concerning to you. You received a tetanus, diptheria, Pertussin vaccination (Tdap). This is good for 5 years, between 5 and 10 years you may need a repeat shot if you get a contaminated cuff otherwise you need a booster shot in 10 years. Prescriptions: New oxycodone 5 mg tablet 5 mg PO Q6H PRN (Reason: pain) Qty: 10 0RF Rx Instructions: Patient may request partial refill; Partial Fill upon patient request. No Action omeprazole 40 mg capsule,delayed release(DR/EC) 40 mg PO BID 30 Days Qty: 60 1RF cyanocobalamin (vitamin B-12) 1,000 mcg/mL solution 1,000 mcg IM Q4W Qty: 3 5RF fluticasone propionate [Flonase Allergy Relief] 50 mcg/actuation spray,suspension 1 spray intranasal Q12H 30 Days Qty: 16 0RF Rx Instructions: administer into each nostril dicyclomine 10 mg capsule 10 mg PO QID Qty: 20 0RF metoclopramide HCl 10 mg tablet 10 mg PO Q6H PRN (Reason: nausea and vomiting, abdominal discomfort) Qty: 10 0RF polyethylene glycol 3350 [Miralax] 17 gram powder in packet 17 g PO DAILY Qty: 30 0RF dextroamphetamine-amphetamine 20 mg tablet 1 tab PO DAILY dextroamphetamine-amphetamine 30 mg tablet 1 tab PO DAILY clonazepam 0.5 mg tablet 0.5 mg PO TID PRN bupropion HCl 200 mg tablet sustained-release 12 hr 300 mg PO QAM albuterol sulfate [ProAir HFA] 90 mcg/actuation HFA aerosol inhaler 2 puff inhalation Q4-6H PRN (Reason: shortness of breath or wheezing) 30 Days Qty: 8.5 2RF
--- NOTE | 2023-02-22 04:39 | PC.NURSE ---
Took over care at 3:47pm from RN Tiffanie, pt upset regarding no one looking at laceration, pt arrived with Laceration covered in triage bleeding was control bandage kept in place until further assessment., bleeding was control, orders placed and pt brought back to EMS room 5, prior to me taking over. ,Notified Provider, Provider into assess pt. Notified charge nurse Adrianna and EDIPHONE OPERATOR Lian of pt concerns.
[2023-02-22] MEDS: oxyCODONE HCl Immed Release 5 MG TABLET PO (05:16)
[2023-02-22] MEDS: Diphth,Pertus(ACell),Tet Adult 0.5 ML SYRINGE IM (05:16)
[2023-02-22] MEDS: Bacitracin Oint 0.9 GM PACKET 1 APPL TOPICAL (05:16)
[2023-02-22 05:18] VITALS: BP 141/87; PULSE 77; RESP 16; TEMP 36.7; O2SAT 100
--- NOTE | 2023-02-22 05:30 | PC.NURSE ---
This RN medicated per Jun, reviewed discharge instructions with pt. pt verbalized understanding, no sign of distress upon discharge.
== END 2023-02-22 05:33 | disposition home or self-care (01) ==
PROVIDERS: Emergency Provider Emergency Medicine Emergency Medical Services
DX: S01.01XA Laceration without foreign body of scalp, initial encounter (principal); W20.8XXA Other cause of strike by thrown, projected or falling object, initial encounter; F17.210 Nicotine dependence, cigarettes, uncomplicated; Y93.9 Activity, unspecified; Y92.019 Unspecified place in single-family (private) house as the place of occurrence of the external cause; Y99.9 Unspecified external cause status
CPT/HCPCS: 12001; 70450; 90471; 90715; 99284

== ENCOUNTER 2023-03-04 16:19 | Outpatient (AMB) | payer OTHER, SELFPAY ==
[2023-03-04 16:21] VITALS: BP 122/80; PULSE 103; O2SAT 97; BMI 42.3
--- NOTE | 2023-03-04 16:21 | A.OFFPC_ITS ---
Vital Signs 03/04/23 16:21 Height 5 ft 4 in Weight 246 lb 6 oz BMI 42.3 BP 122/80 Blood Pressure Location Lt brachial Position Sitting Pulse 103 H Pulse Source Pulse Oximeter Pulse Oximetry (%) 97 Oxygen Delivery Method Room Air Intake Visit Reasons: staple removal on head Liquor Commissioner Required: No Accompanied by: Self / Same As Patient Allergies sulfamethoxazole [From Bactrim] Allergy (Severe, Verified 03/05/23 04:02) hives, fever diisopromine Adverse Reaction (Intermediate, Verified 03/05/23 04:02) hives Medication List - Last Reconciled 03/05/23 by Arsalan Schmidt MD albuterol sulfate 90 mcg/actuation (ProAir HFA) 2 puffs inhalation Q4-6H PRN 30 days bupropion HCl 300 mg PO QAM clonazepam 0.5 mg PO TID PRN cyanocobalamin (vitamin B-12) 1,000 mcg IM Q4W dextroamphetamine-amphetamine 20 mg 1 tab PO DAILY dextroamphetamine-amphetamine 30 mg 1 tab PO DAILY dicyclomine 10 mg PO QID fluticasone propionate 50 mcg/actuation (Flonase Allergy Relief) 1 spray intranasal Q12H 30 days metoclopramide HCl 10 mg PO Q6H PRN omeprazole 40 mg PO BID 30 days oxycodone 5 mg PO Q6H PRN polyethylene glycol 3350 (Miralax) 17 grams PO DAILY Tobacco use date assessed: 03/04/23 Dental Screening Dental Screen Date: 03/04/23 Did you have a dental visit in the last 12 months?: No Did you have a dental problem in the last 6 months where you did not have access to dental care?: No Was dental information given to patient?: No HPI staple removal on head HPI Details Patient comes in today mainly to have the nya on her scalp wound removed She sustained a laceration on her right occipital scalp area just behind her right ear about 10 days ago (02/22/2023)when she accidentally hit her head on the edge of a cabinet door CT of the head done at the ER came back negative and her scalp injury was closed up in the ER with 5 yna Patient states that she is still experiencing on and off headaches and some soreness over the area where her scalp injury is but otherwise feels okay She denies any dizziness No nausea/vomiting, no abdominal pain and no change in bowel habits noted [facility] Medical History Hiatal hernia Abdominal pain Lung nodules Sleep apnea Vitamin B12 deficiency Anxiety Depression Surgical History History of laparoscopic adjustable gastric banding Hx of colonoscopy History of esophagogastroduodenoscopy (EGD) History of bilateral breast reduction surgery History of placement of ear tubes Family History Mother Esophageal cancer Father Diabetes Heart attack Other Mental health disorder Social History Housing: Apartment Alcohol intake: never Patient Tobacco Use Status: Current everyday Tobacco user Tobacco use type: Cigarette Cigarettes Per Day: 5 e-Cigarette/Vaping Use: Never Used Second Hand Smoke Exposure: Yes service: No Current occupational status: unemployed and disabled Current occupational exposures/hazards: No Cognitive needs: No Hearing needs: No Vision needs: No Questionnaire PHQ-9 Over the last 2 weeks, how often have you been bothered by any of the following problems? 1. Little interest or pleasure in doing things: more than half the days 2. Feeling down, depressed, or hopeless: more than half the days 3. Trouble falling or staying asleep, or sleeping too much: not at all 4. Feeling tired or having little energy: not at all 5. Poor appetite or overeating: not at all 6. Feeling bad about yourself - or that you are a failure or have let yourself or your family down: not at all 7. Trouble concentrating on things, such as reading the newspaper or watching television: not at all 8. Moving or speaking so slowly that other people could have noticed. Or the opposite - being so fidgety or restless that you have been moving around a lot more than usual: not at all 9. Thoughts that you would be better off or of hurting yourself in some way: not at all Total score: 4 Depression Screening Interpretation: Positive Depression Screening Follow-up: Existing condition and In treatment Depression Screening Done: Yes 36475 - PHQ-9 Billing: Yes Source: Developed by Drs. Estuardo Oneal, Samanta Lomas, Osvaldo Rush and colleagues, with an educational shant from [employer]. Thrive Questionnaire Date Thrive assessed: 03/04/23 I am a: Patient What is your living situation today?: I have a steady place to live Within the past 12 months, did the food you bought not last and you didn't have the money to get more?: Never true Within the past 12 months, did you worry whether your food would run out before you got money to buy more?: Never true Do you have trouble paying for medicines?: No Do you have trouble getting transportation to medical appointments?: No Do you have trouble paying your heating and electricity bill?: No Do you have trouble taking care of your child, family member or friend?: No Do you have trouble with day-to-day activities such as bathing, preparing meals, shopping, managing finances, etc.?: No Are you currently unemployed and looking for a job?: No Are you interested in more education?: No Please select the resources that you would like help with: None Currently or been in a relationship where the following occur: no concerns reported AUDIT C Alcohol Use Questionnaire (AUDIT-C) 1. How often do you have a drink containing alcohol?: Never 3. How often do you have six or more drinks on one occasion?: Never Total Score: 0 Score Reviewed/Action Taken: Yes ARA-7 AMB Questionnaire ARA-7 Date ARA - 7 assessed: 03/04/23 Feeling nervous, anxious, or on edge: 2 = More than half the days Not being able to stop or control worryin = More than half the days Worrying too much about different things: 2 = More than half the days Trouble relaxin = Not at all Being so restless that it is hard to sit still: 0 = Not at all Becoming easily annoyed or irritable: 0 = Not at all Feeling afraid as if something awful might happen: 0 = Not at all Total ARA-7 score (0-4 normal; 5-9 mild; 10-14 moderate; 15-21 severe): 6 Source: Developed by Drs. Estuardo Oneal, Osvaldo Rodriguez and colleagues, with an educational shant from [employer]. ARA-7 Assessment Billing ARA-7 Assessment Tool: ARA-7 Assessment 72735 Review of Systems Const Denies chills, Denies fatigue, Denies fever(s) and Reports headache(s) (on and off) ENT Denies dysphagia, Denies dizziness, Denies otalgia, Reports headache(s) (on and off), Denies neck pain and Denies sore throat Card Denies chest pain, Denies palpitations and Denies dyspnea Resp Denies cough and Denies dyspnea GI Denies abdominal pain, Denies constipation, Denies dysphagia, Denies heartburn, Denies diarrhea, Denies nausea and Denies vomiting Denies difficulty voiding, Denies nocturia and Denies dysuria Musc Denies neck pain Skin/Breast Denies rash Neuro Denies dizziness and Reports headache(s) (on and off) Endo Denies fatigue and Denies palpitations Physical exam (Primary Care) Vital Signs: Last Vital Signs Pulse 103 H 03/04/23 16:21 BP 122/80 03/04/23 16:21 Pulse Ox 97 03/04/23 16:21 Oxygen Delivery Method Room Air 03/04/23 16:21 BMI result Body Mass Index 42.3 Tobacco/Smoking Status: Tobacco use Status Tobacco use date assessed 03/04/23 03/04/23 16:23 Patient Tobacco Use Status Current everyday Tobacco 03/04/23 16:23 Tobacco use type Cigarette 03/04/23 16:23 e-Cigarette/Vaping Use Never Used 03/04/23 16:23 PHQ-9: PHQ-9 Score PHQ-9: Total score 4 03/04/23 17:25 Depression Screening Interpretation: Positive Depression Screening Follow-up: Existing condition and In treatment Thrive Assessment: Date of Thrive Assessment Date Thrive assessed 03/04/23 03/04/23 16:23 Currently or been in a relationship where the following occur: no concerns reported Const General: no acute distress and alert HENMT Other: well-healed wound over the right occipital scalp just behind the right ear, with all [address]; there is no erythema or drainage noted from the wound Neck Neck: Yes no lymphadenopathy and Yes supple Resp Auscultation: clear to auscultation bilaterally Extrem General: Yes no clubbing, cyanosis or edema Assessment and Plan Assessment & Plan (1) Occipital scalp laceration: Code(s): S01.01XA - Laceration without foreign body of scalp, initial encounter Qualifiers: Encounter type: sequela Qualified Code(s): S01.01XS - Laceration without foreign body of scalp, sequela Plan: Healed/resolved - all 5 nya placed 10 days ago in the ER on 02/22/2023 removed successfully; patient tolerated procedure well She is advised that she should be able to wash her hair and scalp with clean water and soap later today with no restrictions Plan Follow up with PCP as scheduled Coding Level of Care Code Est Pt Level 3 (44983) Diagnoses Laceration of occipital scalp, sequela S01.01XS Encounter type: sequela Additional Codes ARA-7 Assessment Billing - ARA-7 Assessment Tool: ARA-7 Assessment 16438 ([id number])
== END 2023-03-04 17:25 | disposition home or self-care (01) ==
PROVIDERS: Visit Provider Internal Medicine
DX: S01.01XS Laceration without foreign body of scalp, sequela (principal)
CPT/HCPCS: 99213